=== PATIENT | male | born 1950 | race Caucasian/White ===

== ENCOUNTER 2016-06-27 12:00 | Day surgery (SDC) | payer OTHER ==
[2016-06-23 10:25] VITALS: BMI 31.0
[2016-06-27] MEDS ORDERED: LIDOCAINE HCL/PF 2% SDV 5ML VIAL ONE (13:23)
[2016-06-27] MEDS ORDERED: MIDAZOLAM HCL 2 MG/2 ML SINGLE DOSE VIAL ONE (13:24)
[2016-06-27] MEDS ORDERED: PROPOFOL 20 ML ONE ×2 (13:24)
[2016-06-27] MEDS ORDERED: ACETAMINOPHEN 1000 MG/100 ML VIAL (NON FORMULARY) IVPB ONE (13:25)
[2016-06-27] MEDS ORDERED: IBUPROFEN 800 MG/8 ML IJ IVPB PRN (13:25)
--- NOTE | 2016-06-27 13:25 | HP ---
History & Physical Update - History History: No Change - Physical Physical: No Change - Assessment Assessment: No Change - Plan Plan: No Change
[2016-06-27] MEDS ORDERED: DEXTROSE 5%-0.45% SALINE 1,000 ML IV SCH (13:30)
[2016-06-27] MEDS ORDERED: ceFAZolin SODIUM 1 GM VIAL ONE (13:31)
[2016-06-27] MEDS ORDERED: ceFAZolin SODIUM 1 GM VIAL IVPB ONE (13:39)
[2016-06-27] MEDS ORDERED: DEXAMETHASONE SOD PHOSPHATE 4 MG/1 ML VIAL ONE (13:47)
[2016-06-27] MEDS ORDERED: oxyCODONE HCL 5 MG TABLET PO PRN (13:55)
[2016-06-27] MEDS ORDERED: LACTATED RINGERS SOLUTION 1,000 ML IV SCH (14:00)
[2016-06-27] MEDS ORDERED: ACETAMINOPHEN INJECTION 100 ML IVPB ONE (15:08)
[2016-06-27 16:32] VITALS: TEMP 98.3
[2016-06-27 18:00] VITALS: BP 130/77; PULSE 68
--- NOTE | 2016-06-28 16:21 | OP ---
DATE OF OPERATION: 06/27/2016 PREOPERATIVE DIAGNOSIS: Benign prostatic hypertrophy with nocturia. POSTOPERATIVE DIAGNOSIS: Benign prostatic hypertrophy with nocturia. PROCEDURE: Cystoscopy, GreenLight laser ablation of prostate. SURGEON: Keshav Srivastava MD ANESTHESIA: General. ESTIMATED BLOOD LOSS: Minimal. DRAINS: Ames catheter. PREOPERATIVE INDICATIONS: The patient is a 66-year-old male with history of recurrent urinary tract infections and urinary retention secondary to BPH. He also has complaints of nocturia. He comes to the OR for GreenLight laser. DESCRIPTION OF PROCEDURE: The patient was brought to the OR, placed on the table in the supine position, given general anesthesia and IV antibiotics and placed on the modified lithotomy position. The groin was prepped and draped sterilely. Timeout was performed. Cystoscopy was performed. The urethra appeared to be unremarkable. The sphincter was identified. The prostate was obstructive. The bladder itself had trabeculations throughout but no tumors or stones were seen. The UOs were identified. Using the GreenLight laser, set between 80 and 150 vogt, the obstructive tissue was vaporized. Good hemostasis was maintained throughout the end of the case. Up to 67,000 joules of energy and an open prostatic fossa was noted. At the end of the case, the sphincter and the UOs were identified and not injured. A Ames catheter was then placed for postoperative drainage. The patient was woken up. KESHAV SRIVASTAVA M.D. [id number]
== END 2016-06-27 17:40 | disposition home or self-care (01) ==
LOC: JASU-SURG 12:00
PROVIDERS: ATTEND Urology
PROC: 0TJB8ZZ Inspection of Bladder, Via Natural or Artificial Opening Endoscopic (ICD-10-PCS; 2016-06-27)
PROC: 0VT08ZZ Resection of Prostate, Via Natural or Artificial Opening Endoscopic (ICD-10-PCS; principal; 2016-06-27 13:45)
DX: N40.1 Benign prostatic hyperplasia with lower urinary tract symptoms (principal); R35.1 Nocturia
CPT/HCPCS: 94760

== ENCOUNTER 2016-07-13 01:11 | Emergency (ER) | payer OTHER ==
[2016-07-13 01:26] VITALS: BP 134/93; PULSE 75; TEMP 97.6; BMI 27.3
--- NOTE | 2016-07-13 01:44 | PDOC ---
History of Present Illness - General History Source: Patient Exam Limitations: No Limitations - History of Present Illness Initial Comments: 07/13/16 01:46 The patient is a 66 year old male with significant past medical history of hypertension, diverticulitis, and BPH who presents to the ED with urinary retention at 8pm last night. Patient reports he had a urological procedure with Dr. Leslie on 06/27 with no complications. He followed-up with Dr. Leslie yesterday afternoon and informed him that he had some difficulties with urinating, including frequency and urgency. He also noted some dry blood at the end of the urine stream. Prior to evaluation, he went to the bathroom where he pass some stool and at that time he urinated. At time of evaluation, patient states he is now feeling better. The patient denies fever, chills, cough, SOB, chest pain, and palpitations. The patient denies abdominal pain, nausea, vomiting, and diarrhea. Allergies: NKDA Social History: No alcohol, tobacco, or drug use reported. Past Surgical History: s/p urological procedure (06/27) PCP: Dr. Eloise Lerma Urologist: Keshav Leslie <Cary Sauceda - Last Filed: 07/13/16 01:46> - General History Source: Patient <Kenan Dumont - Last Filed: 07/13/16 03:33> - General Stated Complaint: URINARY PROBLEM Time Seen by Provider: 07/13/16 01:44 Past History <Cary Sauceda - Last Filed: 07/13/16 01:46> - Past Medical History Anemia: No Asthma: No Cancer: No Cardiac Disorders: No CVA: No COPD: No CHF: No Dementia: No Diabetes: No GI Disorders: Yes (DIVERTICULITIS) Disorders: No HTN: Yes Hypercholesterolemia: No Liver Disease: No Seizures: No Thyroid Disease: No - Psycho/Social/Smoking Cessation Hx Suicidal Ideation: No Smoking History: Never smoked Have you smoked in the past 12 months: No Information on smoking cessation initiated: No Hx Alcohol Use: No Drug/Substance Use Hx: No Substance Use Type: None <Kenan Dumont - Last Filed: 07/13/16 03:33> - Past Medical History Allergies/Adverse Reactions: Allergies Allergy/AdvReac Type Severity Reaction Status Date / Time No Known Drug Allergies Allergy Verified 07/13/16 01:22 Home Medications: Ambulatory Orders Hydrochlorothiazide 25 mg PO DAILY 05/07/16 Lisinopril [Zestril] 30 mg PO DAILY 05/07/16 Tamsulosin HCl [Flomax -] 0.4 mg PO DAILY@0830 #30 cap.er.24h 05/12/16 Aspirin/Acetaminophen/Caffeine [Excedrin Migraine Caplet] 1 each PO PRN Finasteride 5 mg PO HS 06/23/16 Amox-Tr/K Cl [Augmentin 875-125mg Tablet -] 1 tab PO BID #14 tablet 06/27/16 Oxycodone HCl/Acetaminophen [Percocet 5-325 mg Tablet -] 1 tab PO Q4H #20 tablet MDD 6 06/27/16 Levofloxacin [Levaquin -] 500 mg PO DAILY #7 tablet 07/13/16 Review of Systems - Review of Systems Able to Perform ROS?: Yes Comments:: 07/13/16 01:46 CONSTITUTIONAL: Absent: fever, no chills, no fatigue EYES: Absent: visual changes ENT: Absent: ear pain, no sore throat CARDIOVASCULAR: Absent: chest pain, no palpitations RESPIRATORY: Absent: cough, no SOB GI: Absent: abdominal pain, no nausea, no vomiting, no constipation, no diarrhea GENITOURINARY: +urinary retention, frequency, urgency Absent: dysuria MUSKULOSKELETAL: Absent: back pain, no arthralgia, no myalgia SKIN: Absent: rash NEURO: Absent: headache <Bharrat,Cary - Last Filed: 07/13/16 01:46> *Physical Exam - Vital Signs Last Vital Signs Temp Pulse Resp BP Pulse Ox 97.6 F 75 20 134/93 97 07/13/16 01:22 07/13/16 01:22 07/13/16 01:22 07/13/16 01:22 07/13/16 01:22 - Physical Exam Comments: 07/13/16 01:47 GENERAL: Well-appearing, well-nourished. No apparent distress. HEENT: Normocephalic, atraumatic. PERRL, EOM intact. CARDIOVASCULAR: Normal S1, S2. Regular rate and rhythm. PULMONARY: Clear to auscultation bilaterally. ABDOMEN: Soft, non-distended, non-tender. EXTREMITIES: Normal ROM in all four extremities. No gross deformities. SKIN: Warm, dry. No rash NEUROLOGICAL: No focal neurological deficits. <Cary Sauceda - Last Filed: 07/13/16 01:46> - Vital Signs Last Vital Signs Temp Pulse Resp BP Pulse Ox 97.6 F 75 20 134/93 97 07/13/16 01:22 07/13/16 01:22 07/13/16 01:22 07/13/16 01:22 07/13/16 01:22 <Kenan Dumont - Last Filed: 07/13/16 03:33> Medical Decision Making - Medical Decision Making 07/13/16 03:33 Dr. Dumont: The scribe's documentation has been prepared under my direction and personally reviewed by me in its entirery. I confirm that the note above accurately reflects all work, treatment, procedures, and medical decision making performed by me. <Kenan Dumont - Last Filed: 07/13/16 03:33> *DC/Admit/Observation/Transfer - Attestations Scribe Attestion: 07/13/16 01:47 Documentation prepared by Cary Sauceda, acting as certified medical asst for Kenan Dumont MD <Cary Sauceda - Last Filed: 07/13/16 01:46> - Discharge Dispostion Admit: No <Kenan Dumont - Last Filed: 07/13/16 03:33> Diagnosis at time of Disposition: UTI (urinary tract infection) Qualifiers: Urinary tract infection type: site unspecified Hematuria presence: without hematuria Qualified Code(s): N39.0 - Urinary tract infection, site not specified - Discharge Dispostion Disposition: HOME Condition at time of disposition: Stable - Prescriptions Prescriptions: Levofloxacin [Levaquin -] 500 mg PO DAILY #7 tablet - Referrals Referrals: Eloise Lerma [Primary Care Provider] - Keshav Leslie MD [Staff Physician] - - Patient Instructions Printed Discharge Instructions: DI for Urinary Tract Infection (UTI)
[2016-07-13 02:52] LABS: URINE APPEARANCE CLOUDY; URINE BILIRUBIN NEGATIVE (NEGATIVE); URINE COLOR RED; URINE GLUCOSE (UA) NEGATIVE (NEGATIVE); URINE KETONE NEGATIVE (NEGATIVE); URINE NITRITE NEGATIVE (NEGATIVE); URINE UROBILINOGEN NEGATIVE E.U./dl (0.2-1.0)
[2016-07-13 02:58] LABS: URINE BLOOD 3+ (NEGATIVE); URINE LEUK ESTERASE 3+ (NEGATIVE); URINE PROTEIN 2+ (NEGATIVE)
[2016-07-13 03:01] LABS: URINE BACTERIA FEW /hpf (NONE SEEN); URINE MUCUS RARE; URINE RBC 278 /hpf (0-3); URINE WBC 547 /hpf (3-5)
[2016-07-13] MEDS ORDERED: LEVOFLOXACIN 500 MG TABLET (FP) PO ONE (03:31)
[2016-07-13] MEDS ORDERED: LEVOFLOXACIN 500 MG TABLET (FP) ONE (03:34)
== END 2016-07-13 03:53 | disposition home or self-care (01) ==
LOC: JER 01:11
DX: N39.0 Urinary tract infection, site not specified (principal); I10 Essential (primary) hypertension; N40.0 Benign prostatic hyperplasia without lower urinary tract symptoms; K57.92 Diverticulitis of intestine, part unspecified, without perforation or abscess without bleeding
CPT/HCPCS: 81003; 81015; 87086; 99281-25